=== PATIENT | male | born 1955 | race Caucasian/White ===

== ENCOUNTER 2024-10-05 18:41 | Inpatient (IN) ==
[2024-10-05 19:24] LABS: ABS Eosinophils 0.1 10^3/uL (0.0-0.5); ABS Lymphocytes 0.9 10^3/uL (1.0-4.8); ABS Monocytes 1.2 10^3/uL (0.0-1.1); ABS Neutrophils 14.6 10^3/uL (1.5-7.6); ABS Nucleated RBC 0.01 10^3/ul; Eosinophil % 0.5 %; Hematocrit 40.6 % (38-53); Hemoglobin 13.8 g/dL (13.2-16.3); Lymphocyte % 5.2 %; Mean Corpuscular Hemoglobin 30.1 pg (27-33); Mean Corpuscular Volume 88.5 fL (80-97); Mean Platelet Volume 7.8 fL (7.5-11.2); Platelet Count 293 10^3/uL (150-450); Red Blood Count 4.59 10^6/uL (4.06-5.63); Red Cell Distribution Width 13.6 % (12-17); White Blood Count 16.8 10^3/uL (3.6-10.2)
[2024-10-05] MEDS: Lactated Ringers 1000 ml BAG 1,000 ML IV ONE (19:41)
[2024-10-05 19:52] LABS: Albumin 4.2 g/dL (3.5-5.7); Albumin/Globulin Ratio 1.3 (1-3); C Reactive Protein 154.49 mg/L (<8.01); Creatinine, Serum 1.43 mg/dL (0.67-1.17); Globulin 3.2 g/dL (2-4); Potassium 4.3 mmol/L (3.5-5.0); Total Bilirubin 1.1 mg/dL (0.2-1.0); Total Protein 7.4 g/dL (6.4-8.9); eGFR CKD-EPI 53.4 (>60)
[2024-10-05] MEDS: cefTRIAXone 1 gm/50 mL D5W 1 GM/50 ML BAG IV ONE (20:15)
[2024-10-05] MEDS: Azithromycin 500 mg/250 ml NS 500 MG/250 ML BAG IVPB ONE (21:04)
[2024-10-06] MEDS: Lactated Ringers 1000 ml BAG 1,000 ML IV SCH (01:31)
[2024-10-06 06:30] LABS: ABS Eosinophils 0.1 10^3/uL (0.0-0.5); ABS Lymphocytes 0.7 10^3/uL (1.0-4.8); Eosinophil % 1.1 %; Hematocrit 34.7 % (38-53); Hemoglobin 11.9 g/dL (13.2-16.3); Lymphocyte % 5.3 %; Mean Corpuscular Hemoglobin 29.9 pg (27-33); Mean Corpuscular Hgb Conc 34.1 g/dL (31-36); Mean Corpuscular Volume 87.7 fL (80-97); Mean Platelet Volume 8.2 fL (7.5-11.2); Platelet Count 246 10^3/uL (150-450); Red Blood Count 3.96 10^6/uL (4.06-5.63); Red Cell Distribution Width 13.5 % (12-17); White Blood Count 12.8 10^3/uL (3.6-10.2)
[2024-10-06] MEDS: Mometasone/Formoter 200/5 MDI INH SCH (06:43)
[2024-10-06 06:46] LABS: Calcium 7.7 mg/dL (8.6-10.3); Creatinine, Serum 1.17 mg/dL (0.67-1.17); Potassium 4.1 mmol/L (3.5-5.0); eGFR CKD-EPI 67.9 (>60)
[2024-10-06 07:51] LABS: Magnesium 1.7 mg/dL (1.9-2.7)
[2024-10-06] MEDS: Magnesium Sulfate 2 gm BAG 2 GM/50 ML BAG IVPB ONE (09:49)
[2024-10-06] MEDS: Acetaminophen IV 1 GM/100ML 1,000 MG/100 ML BAG IV PRN (13:38)
[2024-10-06] MEDS: Enoxaparin 40 MG/0.4 ML SYR SUBCUT SCH (17:32)
[2024-10-06] MEDS: Azithromycin 250 MG in NS 0.9% 250 ml 250 ML IVPB SCH (22:21)
[2024-10-06] MEDS: cefTRIAXone 1 gm/50 mL D5W 1 GM/50 ML BAG IV SCH (23:50)
[2024-10-07 06:17] LABS: ABS Eosinophils 0.3 10^3/uL (0.0-0.5); ABS Lymphocytes 0.9 10^3/uL (1.0-4.8); ABS Monocytes 0.9 10^3/uL (0.0-1.1); ABS Neutrophils 8.1 10^3/uL (1.5-7.6); Eosinophil % 2.8 %; Hematocrit 34.1 % (38-53); Hemoglobin 11.5 g/dL (13.2-16.3); Lymphocyte % 8.7 %; Mean Corpuscular Hemoglobin 29.6 pg (27-33); Mean Corpuscular Hgb Conc 33.8 g/dL (31-36); Mean Corpuscular Volume 87.5 fL (80-97); Mean Platelet Volume 8.2 fL (7.5-11.2); Platelet Count 277 10^3/uL (150-450); Red Blood Count 3.89 10^6/uL (4.06-5.63); Red Cell Distribution Width 13.5 % (12-17); White Blood Count 10.2 10^3/uL (3.6-10.2)
[2024-10-07 06:43] LABS: Calcium 7.6 mg/dL (8.6-10.3); Creatinine, Serum 1.24 mg/dL (0.67-1.17); Magnesium 2.2 mg/dL (1.9-2.7); Potassium 4.3 mmol/L (3.5-5.0); eGFR CKD-EPI 63.3 (>60)
[2024-10-07] MEDS: Lactated Ringers 1000 ml BAG 1,000 ML IV SCH (07:55)
[2024-10-07 08:11] LABS: C Reactive Protein 133.11 mg/L (<8.01)
[2024-10-07] MEDS: Enoxaparin 40 MG/0.4 ML SYR SUBCUT SCH (21:05)
[2024-10-08 06:22] LABS: ABS Eosinophils 0.2 10^3/uL (0.0-0.5); ABS Lymphocytes 0.8 10^3/uL (1.0-4.8); ABS Monocytes 0.9 10^3/uL (0.0-1.1); ABS Neutrophils 8.2 10^3/uL (1.5-7.6); Eosinophil % 1.6 %; Hematocrit 33.6 % (38-53); Hemoglobin 11.3 g/dL (13.2-16.3); Lymphocyte % 7.8 %; Mean Corpuscular Hemoglobin 29.5 pg (27-33); Mean Corpuscular Hgb Conc 33.7 g/dL (31-36); Mean Corpuscular Volume 87.6 fL (80-97); Mean Platelet Volume 7.9 fL (7.5-11.2); Platelet Count 299 10^3/uL (150-450); Red Blood Count 3.84 10^6/uL (4.06-5.63); Red Cell Distribution Width 13.5 % (12-17); White Blood Count 10.1 10^3/uL (3.6-10.2)
[2024-10-08 06:41] LABS: Calcium 7.7 mg/dL (8.6-10.3); Creatinine, Serum 1.1 mg/dL (0.67-1.17); Potassium 4.1 mmol/L (3.5-5.0); eGFR CKD-EPI 73.1 (>60)
[2024-10-08 08:46] LABS: Albumin 3.1 g/dL (3.5-5.7); Albumin/Globulin Ratio 1.3 (1-3); C Reactive Protein 103.44 mg/L (<8.01); Globulin 2.3 g/dL (2-4); Total Bilirubin 0.3 mg/dL (0.2-1.0); Total Protein 5.4 g/dL (6.4-8.9)
[2024-10-08] MEDS: Albuterol HFA INHALER 8 gm MDI INH PRN (10:06)
[2024-10-08 14:04] VITALS: BP 125/63
[2024-10-08] MEDS: cefTRIAXone 1 gm/50 mL D5W 1 GM/50 ML BAG IV ONE (14:05)
[2024-10-08] MEDS: AZITHROMYCIN IVPB ONE (14:38)
[2024-10-08] MEDS: NS 0.9% IVPB ONE (14:38)
[2024-10-10 14:35] LABS: Anaplasma phagocytophilum Negative (Negative); B. miyamotoi PCR, B Negative (Negative); Babesia divergens/MO-1 Negative (Negative); Babesia ducani Negative (Negative); Ehrlichia chaffeensis Negative (Negative); Ehrlichia ewingii/canis Negative (Negative); Ehrlichia muris eauclairensis Negative (Negative)
== END 2024-10-08 16:20 | disposition home or self-care (01) | DRG 871 ==
LOC: EDHOLD 18:41 → ED 18:41 → SUATTDRO 20:27 → INTOOBSV 20:27 → OBSVTOIN 20:27 → EDHOLD 22:29 → MED 23:12
PROVIDERS: ADMIT Internal Medicine; ATTEND Student in an Organized Health Care Education/Training Program